=== PATIENT | male | born 1985 | race Caucasian/White ===

== ENCOUNTER 2018-06-28 16:46 | Emergency (ER) | payer OTHER ==
--- NOTE | 2018-06-28 17:12 | ED Physician Documentation ---
PD HPI URI - Stated complaint Stated Complaint: LUMP IN THROAT - Chief complaint Chief Complaint: Heent - History obtained from History obtained from: Patient - History of Present Illness Timing - onset: Other (He had strep throat over the summer which resolved completely. A little over a month ago he was eating and started to feel swelling in the right vallecula area. It was persistent but then worse today. He has been seen in to walk-in clinics, was not tested for strep. Conservative care and ENT referral were advised but he has not made the appointment because of the length of time it was until follow-up would be obtainable.) Review of Systems Ten Systems: 10 systems reviewed and negative Constitutional: denies: Fever, Chills, Fatigue Nose: denies: Rhinorrhea / runny nose, Congestion Throat: reports: Sore throat Cardiac: denies: Chest pain / pressure Respiratory: denies: Dyspnea, Cough PD PAST MEDICAL HISTORY - Past Medical History Past Medical History: No - Past Surgical History Past Surgical History: No - Present Medications Home Medications: Ambulatory Orders Medication Instructions Recorded Confirmed No Known Home Medications 06/28/18 06/28/18 - Allergies Allergies/Adverse Reactions: Allergies Allergy/AdvReac Type Severity Reaction Status Date / Time No Known Drug Allergies Allergy Verified 06/28/18 17:04 - Social History Does the pt smoke?: No Smoking Status: Never smoker Does the pt drink ETOH?: Yes Does the pt have substance abuse?: No - Immunizations Immunizations are current?: Yes - POLST Patient has POLST: No PD ED PE NORMAL - Vitals Vital signs reviewed: Yes - General General: Alert and oriented X 3, No acute distress - HEENT HEENT: Other (Visualized portions of the oropharynx are normal but he does have moderate asymmetric right greater than left cervical adenopathy.) - Neck Neck: Supple, no meningeal sign, No bony TTP - Abdomen Abdomen: Soft, Non tender - Neuro Neuro: Alert and oriented X 3, Normal speech Results - Vitals Vitals: Vital Signs - 24 hr 06/28/18 16:59 Temperature 36.1 C L Heart Rate 86 Respiratory 22 Rate Blood Pressure 156/95 H O2 Saturation 100 Oxygen O2 Source Room air - Labs Labs: Laboratory Tests 06/28/18 06/28/18 06/28/18 17:20 17:20 17:20 WBC 8.5 RBC 4.98 Hgb 14.2 Hct 42.4 MCV 85.1 MCH 28.4 MCHC 33.4 RDW 13.9 Plt Count 233 MPV 9.6 Neut # (Auto) 4.1 Lymph # (Auto) 3.4 Cecil # (Auto) 0.8 Eos # (Auto) 0.1 Baso # (Auto) 0.1 Absolute Nucleated RBC 0.01 Nucleated RBC % 0.1 Sodium 135 Potassium 3.5 Chloride 101 Carbon Dioxide 25 Anion Gap 9.0 BUN 18 Creatinine 0.9 Estimated GFR (MDRD) 97 Glucose 109 H Calcium 9.5 Total Bilirubin 1.0 AST 20 ALT 26 Alkaline Phosphatase 77 Total Protein 8.7 H Albumin 4.8 Globulin 3.9 Albumin/Globulin Ratio 1.2 Lipase 20 L Infectious Cecil Assay NEGATIVE Group A Strep Rapid 06/28/18 17:25 WBC RBC Hgb Hct MCV MCH MCHC RDW Plt Count MPV Neut # (Auto) Lymph # (Auto) Cecil # (Auto) Eos # (Auto) Baso # (Auto) Absolute Nucleated RBC Nucleated RBC % Sodium Potassium Chloride Carbon Dioxide Anion Gap BUN Creatinine Estimated GFR (MDRD) Glucose Calcium Total Bilirubin AST ALT Alkaline Phosphatase Total Protein Albumin Globulin Albumin/Globulin Ratio Lipase Infectious Cecil Assay Group A Strep Rapid Negative - Rads (name of study) CT neck Radiology: EMP read contemporaneously (Sial adenitis of the right submandibular gland) PD MEDICAL DECISION MAKING - ED course ED course: 33-year-old gentleman with ongoing right mandibular and throat pain status post a few evaluations. Workup here demonstrates sial adenitis. He was counseled to use lemon heads and follow-up with your nose and throat physician. Departure - Departure Disposition: 01 Home, Self Care Clinical Impression: Sialadenitis Condition: Good Record reviewed to determine appropriate education?: Yes Instructions: Stensen Duct Obstruction Tx Comments: Follow-up with an ear nose and throat doctor with the copy of your CT scan with you. The closest ENT is in [place], the phone number is [phone].
[2018-06-28 17:32] LABS: BASOPHILS # (AUTO) 0.1 10^3/uL (0.0-0.1); BASOPHILS % (AUTO) 0.9 %; EOSINOPHILS # (AUTO) 0.1 10^3/uL (0.0-0.7); EOSINOPHILS % (AUTO) 1.5 %; HGB - HEMOGLOBIN 14.2 g/dL (14.0-18.0); LYMPHOCYTES # (AUTO) 3.4 10^3/uL (1.5-3.5); LYMPHOCYTES % (AUTO) 40.3 %; MEAN CORPUSCULAR HEMOGLOBIN 28.4 pg (27.0-31.0); MEAN CORPUSCULAR HGB CONC 33.4 g/dL (32.0-36.0); MEAN CORPUSCULAR VOLUME 85.1 fL (80.0-94.0); MEAN PLATELET VOLUME 9.6 fL (7.4-11.4); MONOCYTES # (AUTO) 0.8 10^3/uL (0.0-1.0); MONOCYTES % (AUTO) 9.3 %; NEUTROPHILS # (AUTO) 4.1 10^3/uL (1.5-6.6); PLT - PLATELET COUNT 233 10^3/uL (130-450); RED BLOOD COUNT 4.98 10^6/uL (4.70-6.10); RED CELL DISTRIBUTION WIDTH 13.9 % (12.0-15.0); WHITE BLOOD COUNT 8.5 x10^3/uL (4.8-10.8)
[2018-06-28 17:42] LABS: ALBUMIN 4.8 g/dL (3.2-5.5); ALBUMIN/GLOBULIN RATIO 1.2 (1.0-2.2); CALCIUM 9.5 mg/dL (8.5-10.3); CREATININE 0.9 mg/dL (0.6-1.2); TOTAL PROTEIN 8.7 g/dL (6.7-8.2)
[2018-06-28] MEDS ORDERED: IOVERSOL 320 100 ML VIAL IVP ONE ×2 (18:02→18:47)
--- NOTE | 2018-06-28 19:05 | CT Report ---
Reason: adenopathy and FB sensation R side Procedure Date: 06/28/2018 Accession Number: [id number] / [id number] Procedure: CT - Neck Soft Tissue W/ CPT Code: FULL RESULT: EXAM: CT SOFT TISSUE NECK WITH CONTRAST. EXAM DATE: 06/28/2018 06:45 PM. HISTORY: Lump right side of neck tonight. Sore throat for 2 months. Adenopathy and foreign body sensation right side. COMPARISONS: None. TECHNIQUE: Routine soft tissue neck CT protocol. Reconstructions: Coronal and sagittal. IV contrast: 80 ML OPTIRAY 320. In accordance with CT protocol optimization, one or more of the following dose reduction techniques were utilized for this exam: automated exposure control, adjustment of mA and/or KV based on patient size, or use of iterative reconstructive technique. FINDINGS: A small amount of inflammatory change is seen adjacent to the right submandibular gland. There is a 5-6 mm calcification involving the submandibular duct just anterior to the right submandibular gland. There is slight dilatation of the submandibular ducts within the submandibular gland particularly its inferior aspect. The right submandibular gland enhances to a slightly greater degree than the left. The left submandibular gland has a normal CT appearance. The right and the left parotid gland have a normal CT appearance. No mass is present in the nasopharynx. The parapharyngeal fat is symmetric. Epiglottis is not thickened. The aryepiglottic folds are symmetric. There is slight medial position of the right true vocal cord. The right piriform sinus is slightly larger than the left. The thyroid gland is not enlarged. No bulky lymphadenopathy is identified in the neck or in the visualized upper mediastinum. No enhancing mass is identified in the visualized brain. Expected enhancement is seen in the internal jugular vein bilaterally. No suspicious spiculated mass is present in either lung apex. IMPRESSION: 1. Sialadenitis is present involving the right submandibular gland. There is an obstructing calculus in the proximal aspect of the submandibular duct. RADIA
[2018-06-28 19:39] VITALS: BP 140/90
== END 2018-06-28 19:37 | disposition home or self-care (01) ==
LOC: ED 16:46
DX: K11.20 Sialoadenitis, unspecified (principal)
CPT/HCPCS: 36415; 70491; 80053; 83690; 85025; 86308; 87070; 87430; 99282; 99283; Q9967